=== PATIENT | male | born 1945 | race Caucasian/White ===

== ENCOUNTER 2021-04-15 20:00 | Outpatient (CLI) | payer OTHER, SELFPAY | END 2021-04-15 20:01 | disposition home or self-care (01) | LOC: SLEEP 04-16 06:00 | PROVIDERS: Family Provider Nurse Practitioner; PCP Nurse Practitioner; Visit Provider Emergency Medicine Emergency Medical Services | DX: G47.33 Obstructive sleep apnea (adult) (pediatric) (principal) | CPT/HCPCS: 95810 ==

== ENCOUNTER 2021-05-06 13:36 | Outpatient (CLI) | payer OTHER, SELFPAY ==
--- NOTE | 2021-05-06 13:42 | USCV_ITS ---
John Patino Age: 76 Gender: M : 1945 Exam Date: 05/06/2021 14:36 Ordering Phys: Dylon Buckley DO Technologist: [place] [facility] [place]: cca disease Risk Factors: Previous Vascular Surgery: None Right Brachial BP: / Left Brachial BP: / Right Left Velocity (cm/s) Spectral Plaque Velocity (cm/s) Spectral Plaque Syst/Diast Broadening Syst/Diast Broadening 68.40/ 14.30 Prox CCA 56.00 / 15.30 77.20/ 14.30 Mid CCA 64.30 / 16.40 79.40/ 17.60 Hetro Distal CCA 68.80 / 17.90 Hetro 130.05/31.70 Hetro Prox ICA 75.60 / 14.40 Hetro 156.10/39.80 Aashish Mid ICA 66.20 / 17.60 Hetro 58.70/ 13.50 Distal ICA 65.10 / 18.70 119.10 ECA 93.50 1.99 ICA/CCA 1.10 Antegrade Vertebral Antegrade 39.10/ 14.20 cm/s 24.00/ 9.60 cm/s Tri Subclavian Tri 99.20 110.3 0 FINDINGS Comparison: none available. Diffuse bilateral scattered calcified plaque and intimal thickening throughout the common carotid arteries and extending through the bifurcation. Mild elevation of right ICA velocity. Antegrade vertebral arteries. CONCLUSIONS Right ICA stenosis 50-69%, closer to 50%. Left ICA stenosis < 50%. Dr. Amina Lorenzana DO (Electronically Signed) Final Date: 07 May 2021 06:37 S
--- NOTE | 2021-05-12 07:24 | USCV_ITS ---
John Patino Age: 76 Gender: M : 1945 Exam Date: 05/12/2021 07:31 Ordering Phys: Dylon Buckley DO Technologist: Jens Bals [place] [facility] [place] HISTORY: Diameter (cm) AP x Transverse x Length Velocity (cm/s) Waveform Prox Aorta: 2.38 x 2.01 x 60.20 Mid Aorta: 2.05 x 2.05 x 126.80 Distal Aorta: 2.13 x 2.54 x 83.80 Right Iliac Prox: 1.89 x 1.89 x 123.50 Left Iliac Prox: 1.73 x 1.86 x 93.50 Stent Prox Landing x x Aneurysmal Sac Max x x Lt Lat Sac Dim Rt Lat Sac Dim Stent Dist Landing x x Right Iliac Stent x x Left Iliac Stent x x Right Renal Art Left Renal Art FINDINGS: Comparison: none available. Ectatic abdominal aorta with evidence of atherosclerotic plaque noted. The abdominal aorta was difficult to adequately visualize. There is no evidence of right common iliac artery stenosis. There is no evidence of left common iliac artery stenosis. CONCLUSIONS No AAA seen but study is limited by body habitus. Dr. Amina Lorenzana DO (Electronically Signed) Final Date: 12 May 2021 08:20 S
== END 2021-05-06 13:37 | disposition home or self-care (01) ==
LOC: RAD 13:38
PROVIDERS: Family Provider Nurse Practitioner; PCP Nurse Practitioner; Visit Provider Emergency Medicine Emergency Medical Services
DX: R09.89 Other specified symptoms and signs involving the circulatory and respiratory systems (principal); I65.23 Occlusion and stenosis of bilateral carotid arteries
CPT/HCPCS: 93880

== ENCOUNTER 2021-05-12 06:00 | Outpatient (CLI) | payer OTHER, SELFPAY ==
--- NOTE | 2021-05-12 | USCV_ITS ---
John Patino Age: 76 Gender: M : 1945 Exam Date: 05/12/2021 07:31 Ordering Phys: Dylon Buckley DO Technologist: Jens Blas Exam Location: [facility] – [place] Indication: screening HISTORY: Diameter (cm) AP x Transverse x Length Velocity (cm/s) Waveform Prox Aorta: 2.38 x 2.01 x 60.20 Mid Aorta: 2.05 x 2.05 x 126.80 Distal Aorta: 2.13 x 2.54 x 83.80 Right Iliac Prox: 1.89 x 1.89 x 123.50 Left Iliac Prox: 1.73 x 1.86 x 93.50 Stent Prox Landing x x Aneurysmal Sac Max x x Lt Lat Sac Dim Rt Lat Sac Dim Stent Dist Landing x x Right Iliac Stent x x Left Iliac Stent x x Right Renal Art Left Renal Art FINDINGS: Comparison: none available. Ectatic abdominal aorta with evidence of atherosclerotic plaque noted. The abdominal aorta was difficult to adequately visualize. There is no evidence of right common iliac artery stenosis. There is no evidence of left common iliac artery stenosis. CONCLUSIONS No AAA seen but study is limited by body habitus. Dr. Amina Lorenzana DO (Electronically Signed) Final Date: 12 May 2021 08:20 S
== END 2021-05-12 06:01 | disposition home or self-care (01) ==
LOC: RAD 05-13 11:26
PROVIDERS: Family Provider Nurse Practitioner; PCP Nurse Practitioner; Visit Provider Emergency Medicine Emergency Medical Services
DX: Z13.6 Encounter for screening for cardiovascular disorders (principal)
CPT/HCPCS: 76706

== ENCOUNTER 2021-08-31 20:00 | Outpatient (CLI) | payer OTHER, SELFPAY | END 2021-08-31 20:01 | disposition home or self-care (01) | LOC: SLEEP 09-01 07:48 | PROVIDERS: Family Provider Nurse Practitioner; PCP Nurse Practitioner; Visit Provider Emergency Medicine Emergency Medical Services | DX: G47.33 Obstructive sleep apnea (adult) (pediatric) (principal) | CPT/HCPCS: 95811 ==

== ENCOUNTER 2023-03-10 09:50 | Outpatient (CLI) | payer OTHER, SELFPAY ==
--- NOTE | 2023-03-10 09:56 | USCV_ITS ---
John Patino Age: 78 Gender: M : 1945 Exam Date: 03/10/2023 10:13 Ordering Phys: Dylon Buckley DO Technologist: SAVI [place] [facility] [place]: Stenosis Risk Factors: Previous Vascular Surgery: Right Brachial BP: / Left Brachial BP: / Right Left Velocity (cm/s) Spectral Plaque Velocity (cm/s) Spectral Plaque Syst/Diast Broadening Syst/Diast Broadening 97.90/ 14.00 Prox CCA 68.20 / 16.30 69.10/ 14.80 Mid CCA 93.50 / 21.10 80.00/ 14.80 Distal CCA 66.80 / 17.10 96.20/ 19.20 Prox ICA 99.30 / 28.40 169.30/51.30 Mid ICA 81.20 / 19.60 97.70/ 24.40 Distal ICA 81.20 / 18.20 110.30 ECA 102.50 1.73 ICA/CCA 1.06 Antegrade Vertebral Antegrade 64.90/ 17.90 cm/s 34.30/ 14.00 cm/s Tri Subclavian Tri 254.3 196.9 0 0 FINDINGS Comparison 05/06/21 Velocities slightly decreased compared to previous CONCLUSIONS Right ICA stenosis <50%. Mild atheromatous plaque right carotid bulb/ICA. Left ICA stenosis <50%. Mild atheromatous plaque left carotid bulb/ICA. Normal antegrade Doppler flow noted in the right vertebral artery. Normal antegrade Doppler flow noted in the left vertebral artery. Narayan Ng MD (Electronically Signed) Final Date: 10 March 2023 14:02 S
== END 2023-03-10 09:51 | disposition home or self-care (01) ==
LOC: RAD 09:52
PROVIDERS: PCP Nurse Practitioner; Visit Provider Emergency Medicine Emergency Medical Services
DX: I65.23 Occlusion and stenosis of bilateral carotid arteries (principal)
CPT/HCPCS: 93880